=== PATIENT | female | born 1995 | race Caucasian/White ===

== ENCOUNTER 2022-04-15 03:33 | Emergency (ER) | payer SELFPAY ==
[~2022-04-15] VITALS: Ht 154.9 cm; Wt 75.3 kg
[2022-04-15 04:30] LABS: BASO % 0.2 % (0.0-1.0); EOS % 0.1 % (0.0-3.0); HEMATOCRIT 42.1 % (36.0-47.0); HEMOGLOBIN 13.8 g/dl (12.0-15.5); LYMPH # 1.2 10^3/uL (1.5-5.0); LYMPH % 8.6 % (24.0-44.0); MEAN CORPUSCULAR HEMOGLOBIN 27.3 pg (27.0-33.0); MEAN CORPUSCULAR HGB CONC 32.8 g/dl (32.0-36.5); MEAN CORPUSCULAR VOLUME 83.2 fl (80.0-96.0); MONO # 0.8 10^3/uL (0.0-0.8); MONO % 6.1 % (2.0-8.0); NEUTROPHILS # 11.7 10^3/uL (1.5-8.5); NEUTROPHILS % 84.7 % (36.0-66.0); PLATELET COUNT, AUTOMATED 251 10^3/uL (150-450); RED BLOOD COUNT 5.06 10^6/uL (4.00-5.40); WHITE BLOOD COUNT 13.8 10^3/uL (4.0-10.0)
[2022-04-15 04:42] LABS: HCG, SERUM QUALITATIVE POSITIVE (NEGATIVE)
[2022-04-15 04:53] LABS: LIPASE 40 U/L (12-53)
[2022-04-15 04:56] LABS: ALBUMIN 4.2 G/DL (3.2-5.2); ALKALINE PHOSPHATASE 67 U/L (46-116); ALT/SGPT 21 U/L (7.0-40); AST/SGOT 18 U/L (<34); BILIRUBIN,DIRECT 0.4 MG/DL (<0.4); BLOOD UREA NITROGEN 8 MG/DL (9-23); CALCIUM LEVEL 9.3 MG/DL (8.5-10.1); CARBON DIOXIDE LEVEL 24 MMOL/L (20-31); CHLORIDE LEVEL 101 MMOL/L (98-107); CREATININE FOR GFR 0.57 MG/DL (0.55-1.30); GLOMERULAR FILTRATION RATE > 60.0 (>60); GLUCOSE, FASTING 123 MG/DL (60-100); SODIUM LEVEL 134 MMOL/L (136-145); TOTAL PROTEIN 7.7 G/DL (5.7-8.2)
[2022-04-15] MEDS ORDERED: ACETAMINOPHEN 325 MG TAB PO ONE (08:00)
[2022-04-15] MEDS ORDERED: NITROFURANTOIN (MACROBID) 100 MG CAP PO ONE (08:00)
[2022-04-15] MEDS ORDERED: CEFTRIAXONE 2 GM IM ONE (08:25)
[2022-04-15] MEDS ORDERED: LIDOCAINE 1% SDV 5ML VIAL DILUENT ONE (08:25)
[2022-04-15] MEDS ORDERED: NITR-67 PO (08:29)
[2022-04-15] MEDS ORDERED: ONDA4TAB6 PO (08:30)
[2022-04-15] MEDS ORDERED: PYRI1TAB5 PO (08:37)
[2022-04-15] MEDS ORDERED: MACR100C43 PO (09:11)
[2022-04-15 09:14] VITALS: BP 117/82
== END 2022-04-15 09:17 | disposition home or self-care (01) ==
LOC: M ED 03:33
DX: O23.41 Unspecified infection of urinary tract in pregnancy, first trimester (principal); Z3A.01 Less than 8 weeks gestation of pregnancy
CPT/HCPCS: 76801; 80048; 80076; 81000; 81015; 83605; 83690; 84702; 84703; 85025; 87086; 93976; 99283; J0696